=== PATIENT | male | born 1995 | race Caucasian/White ===

== ENCOUNTER → 2020-11-08 | Outpatient (CLI) | payer BC | END | disposition home or self-care (01) | LOC: LAB SHORT 15:07 | DX: J02.9 Acute pharyngitis, unspecified (principal) | CPT/HCPCS: 87081 ==

== ENCOUNTER → 2021-07-30 | Outpatient (CLI) | payer BC | LOC: LAB SHORT 13:51 → LAB 13:51 | PROVIDERS: Physician Assistant | DX: Z11.8 Encounter for screening for other infectious and parasitic diseases (principal) | CPT/HCPCS: 87491; 87591 ==